=== PATIENT | female | born 1940 | race Caucasian/White ===

== ENCOUNTER 2016-09-18 09:15 | Outpatient (CLI) | payer MEDICARE | END 2016-09-18 09:16 | disposition home or self-care (01) | DX: Z53.9 Procedure and treatment not carried out, unspecified reason (principal) ==

== ENCOUNTER 2017-04-07 14:36 | Outpatient (CLI) | payer MEDICARE ==
[2017-04-07 18:56] LABS: BASOPHILS # (AUTO) 0.1 10^3/uL (0.0-0.1); BASOPHILS % (AUTO) 0.8 %; EOSINOPHILS # (AUTO) 0.1 10^3/uL (0.0-0.7); EOSINOPHILS % (AUTO) 1.6 %; HCT - HEMATOCRIT 40.3 % (37.0-47.0); HGB - HEMOGLOBIN 13.1 g/dL (12.0-16.0); LYMPHOCYTES # (AUTO) 2.3 10^3/uL (1.5-3.5); LYMPHOCYTES % (AUTO) 27.8 %; MEAN CORPUSCULAR HEMOGLOBIN 28.4 pg (27.0-31.0); MEAN CORPUSCULAR HGB CONC 32.5 g/dL (32.0-36.0); MEAN CORPUSCULAR VOLUME 87.2 fL (81.0-99.0); MEAN PLATELET VOLUME 9.5 fL (7.9-10.8); MONOCYTES # (AUTO) 0.7 10^3/uL (0.0-1.0); MONOCYTES % (AUTO) 8.6 %; NEUTROPHILS # (AUTO) 5.1 10^3/uL (1.5-6.6); NEUTROPHILS % (AUTO) 61.2 %; NUCLEATED RED BLOOD CELLS AUTO 0.1 /100WBC; RED BLOOD COUNT 4.62 10^6/uL (4.20-5.40); RED CELL DISTRIBUTION WIDTH 14.3 % (12.0-15.0); UNCORRECTED WHITE BLOOD COUNT 8.3 x10^3/uL; WHITE BLOOD COUNT 8.3 x10^3/uL (4.8-10.8)
[2017-04-07 19:13] LABS: ALBUMIN/GLOBULIN RATIO 1.2 (1.0-2.2); BILIRUBIN,TOTAL 0.7 mg/dL (0.2-1.0); BUN - BLOOD UREA NITROGEN 20 mg/dL (6-20); CALCIUM 9.6 mg/dL (8.5-10.3); CARBON DIOXIDE - CO2 30 mmol/L (21-32); CHLORIDE 98 mmol/L (101-111); CHOL/HDL RATIO 5.2 (<4.4); CHOLESTEROL 243 mg/dL; GFR - MDRD 54 (>89); GLUCOSE 105 mg/dL (70-100); HDL CHOLESTEROL 47 mg/dL; LDL/HDL RATIO 3.3 (<4.4); SODIUM 137 mmol/L (135-145); TOTAL PROTEIN 7.8 g/dL (6.7-8.2); TRIGLYCERIDES 211 mg/dL; VLDL CHOLESTEROL 42 mg/dL
== END 2017-04-07 14:37 | disposition home or self-care (01) ==
LOC: LAB.WCP 14:36
PROVIDERS: ATTEND Family Medicine
DX: I10 Essential (primary) hypertension (principal); E78.1 Pure hyperglyceridemia
CPT/HCPCS: 36415; 80053; 80061; 85025

== ENCOUNTER 2018-01-18 11:01 | Outpatient (CLI) | payer MEDICARE ==
--- NOTE | 2018-01-18 14:33 | XRAY Report ---
Procedure Date: 01/18/2018 Accession Number: [id number] / [id number] Procedure: XR - AC Joints CPT Code: FULL RESULT: EXAM: Shoulder 2 View RT, AC Joints DATE: 01/18/2018 11:28 AM CLINICAL HISTORY: SHOULDER PAIN RIGHT COMPARISON: None. TECHNIQUE: 3 views of the shoulder and weightbearing and nonweightbearing views of the AC joints. FINDINGS: Anterior inferior glenohumeral dislocation. Humeral head deformity, suspect Hill-Sachs lesion. Degenerative changes seen about the acromioclavicular joints. No fracture is identified. Views of the AC joints with and without weight demonstrate preservation of the bilateral acromioclavicular distances as well as the coracoclavicular intervals bilaterally. IMPRESSION: Anterior inferior dislocation of the right shoulder. RADIA
--- NOTE | 2018-01-18 14:34 | XRAY Report ---
Procedure Date: 01/18/2018 Accession Number: [id number] / [id number] Procedure: XR - Shoulder 2 View RT CPT Code: FULL RESULT: EXAM: Shoulder 2 View RT, AC Joints DATE: 01/18/2018 11:28 AM CLINICAL HISTORY: SHOULDER PAIN RIGHT COMPARISON: None. TECHNIQUE: 3 views of the shoulder and weightbearing and nonweightbearing views of the AC joints. FINDINGS: Anterior inferior glenohumeral dislocation. Humeral head deformity, suspect Hill-Sachs lesion. Degenerative changes seen about the acromioclavicular joints. No fracture is identified. Views of the AC joints with and without weight demonstrate preservation of the bilateral acromioclavicular distances as well as the coracoclavicular intervals bilaterally. IMPRESSION: Anterior inferior dislocation of the right shoulder. RADIA
== END 2018-01-18 11:02 | disposition home or self-care (01) ==
LOC: DI 11:01
PROVIDERS: ATTEND Physician Assistant Medical
DX: S43.014A Anterior dislocation of right humerus, initial encounter (principal)
CPT/HCPCS: 73050

== ENCOUNTER 2019-05-17 12:24 | Outpatient (CLI) | payer MEDICARE ==
--- NOTE | 2019-05-17 15:11 | Ultrasound Report ---
Reason: LT BREAST LUMP Procedure Date: 05/17/2019 Accession Number: [id number] / [id number] Procedure: US - Breast Unilateral Limited CPT Code: Final Report FULL RESULT: EXAM: Diagnostic Srinivasa Alamo, Breast Unilateral Limited DATE: 05/17/2019 1:29 PM CLINICAL HISTORY: The patient is a 78-year-old female presenting with a palpable lump (dermal origin) in the left breast. No personal nor family history of breast cancer. BILATERAL MAMMOGRAM TECHNIQUE: (B) - Bilateral CC, exaggerated CC and MLO views were obtained. Diagnostic left breast views obtained. COMPARISON: 09/03/2014, 11/09/2012 and 09/03/2010 PARENCHYMAL PATTERN: (A) - The breasts demonstrate scattered fibroglandular densities bilaterally. FINDINGS: RIGHT BREAST: There are no suspicious masses, calcifications, or areas of distortion. LEFT BREAST: There is a circumscribed interdermal lesion (ultrasound proven sebaceous cyst) in the 4-5 o'clock middle position at the site of palpable concern. The remainder of the parenchyma is stable. There are no masses, calcifications or areas of distortion. No mammographically suspicious findings. LEFT ULTRASOUND: TECHNIQUE: High-frequency transducer was utilized to evaluate the site of palpable concern described on the patient. Doppler performed. Technology Officer static images obtained. FINDINGS: There is an intradermal avascular cyst measuring 11 mm in maximal dimension. This is consistent with a benign inspissated sebaceous/inclusion cyst and corresponds to the palpable and mammographic findings. No solid mass, hyperemia or distortion. No sonographically suspicious findings. IMPRESSION: Benign findings. BI-RADS category 2. RECOMMENDATION: Clinical follow-up is recommended. Benign imaging should not dissuade further evaluation of any suspicious changes. Annual screening mammography is recommended. BI-RADS CATEGORY: STANDARD QUALIFYING STATEMENTS: 1. This examination was not reviewed with the aid of Computer-Aided Detection (CAD). 2. A negative or benign imaging report should not preclude biopsy if clinically suspicious findings are present. 3. Dense breasts may obscure an underlying neoplasm.
== END 2019-05-17 12:25 | disposition home or self-care (01) ==
LOC: DI 12:24
PROVIDERS: ATTEND Family Medicine
DX: N60.02 Solitary cyst of left breast (principal)
CPT/HCPCS: 76642; 77066

== ENCOUNTER 2020-12-09 08:00 | Outpatient (CLI) | payer MEDICARE ==
[2020-12-09 13:23] LABS: BASOPHILS # (AUTO) 0.1 10^3/uL (0.0-0.1); BASOPHILS % (AUTO) 1.1 %; EOSINOPHILS # (AUTO) 0.1 10^3/uL (0.0-0.7); HCT - HEMATOCRIT 41.7 % (37.0-47.0); HGB - HEMOGLOBIN 12.8 g/dL (12.0-16.0); LYMPHOCYTES # (AUTO) 1.6 10^3/uL (1.5-3.5); LYMPHOCYTES % (AUTO) 23.2 %; MEAN CORPUSCULAR HEMOGLOBIN 27.4 pg (27.0-31.0); MEAN CORPUSCULAR HGB CONC 30.7 g/dL (32.0-36.0); MEAN CORPUSCULAR VOLUME 89.3 fL (81.0-99.0); MEAN PLATELET VOLUME 11.1 fL (7.9-10.8); MONOCYTES # (AUTO) 0.6 10^3/uL (0.0-1.0); MONOCYTES % (AUTO) 8.6 %; NEUTROPHILS # (AUTO) 4.5 10^3/uL (1.5-6.6); NEUTROPHILS % (AUTO) 64.7 %; PLT - PLATELET COUNT 264 10^3/uL (130-450); RED BLOOD COUNT 4.67 10^6/uL (4.20-5.40); RED CELL DISTRIBUTION WIDTH 14.1 % (12.0-15.0)
[2020-12-09 13:50] LABS: ALBUMIN 4.5 g/dL (3.2-5.5); ALBUMIN/GLOBULIN RATIO 1.2 (1.0-2.2); ALKALINE PHOSPHATASE 44 IU/L (42-121); ALT ALANINE AMINOTRANSFERASE 18 IU/L (10-60); AST ASPARTATE AMINOTRANSFERASE 16 IU/L (10-42); BILIRUBIN,TOTAL 0.6 mg/dL (0.2-1.0); BUN - BLOOD UREA NITROGEN 18 mg/dL (6-20); CALCIUM 9.4 mg/dL (8.5-10.3); CARBON DIOXIDE - CO2 30 mmol/L (21-32); CHLORIDE 94 mmol/L (101-111); CHOL/HDL RATIO 4.2 (<4.4); CHOLESTEROL 225 mg/dL; CREATININE 0.7 mg/dL (0.4-1.0); GFR - MDRD 81 (>89); GLUCOSE 121 mg/dL (70-100); HDL CHOLESTEROL 54 mg/dL; LDL CHOLESTEROL,CALCULATED 140 mg/dL; LDL/HDL RATIO 2.6 (<4.4); POTASSIUM 4.4 mmol/L (3.5-5.0); SODIUM 136 mmol/L (135-145); TOTAL PROTEIN 8.3 g/dL (6.7-8.2); TRIGLYCERIDES 157 mg/dL; VLDL CHOLESTEROL 31 mg/dL
[2020-12-09 13:58] LABS: ESTIMATED AVERAGE GLUCOSE 120 mg/dL (70-100); HEMOGLOBIN A1c% 5.8 % (4.27-6.07)
== END 2020-12-09 23:59 | disposition home or self-care (01) ==
LOC: LAB.WCP 08:00
PROVIDERS: ATTEND Family Medicine
DX: R73.01 Impaired fasting glucose (principal); E78.1 Pure hyperglyceridemia; I10 Essential (primary) hypertension
CPT/HCPCS: 36415; 80053; 80061; 83036; 83721; 85025

== ENCOUNTER 2021-08-14 10:25 | Outpatient (CLI) | payer MEDICARE ==
--- NOTE | 2021-08-14 15:53 | XRAY Report ---
PROCEDURE: Knee 4 View LT INDICATIONS: KNEE PAIN, LEFT TECHNIQUE: 4 views of the left knee(s) were acquired. COMPARISON: None. FINDINGS: Bones: No fractures or dislocations. No suspicious bony lesions. Tricompartmental degenerative candy nges with tricompartmental osteophytes and severe medial joint space narrowing. Soft tissues: No joint effusion. No suspicious soft tissue calcifications. IMPRESSION: Osteoarthritis of the left knee. Reviewed by: Jason Vee on 08/14/2021 3:52 PM PST Approved by: Jason Vee on 08/14/2021 3:52 PM [facility] Station ID: [id number]
== END 2021-08-14 10:26 | disposition home or self-care (01) ==
LOC: DI.N 10:25
PROVIDERS: ATTEND Family Medicine
DX: M17.12 Unilateral primary osteoarthritis, left knee (principal)

== ENCOUNTER 2022-05-21 08:10 | Outpatient (CLI) | payer MEDICARE ==
[2022-05-21 12:29] LABS: BASOPHILS # (AUTO) 0.1 10^3/uL (0.0-0.1); BASOPHILS % (AUTO) 0.9 %; EOSINOPHILS # (AUTO) 0.1 10^3/uL (0.0-0.7); EOSINOPHILS % (AUTO) 1.9 %; HCT - HEMATOCRIT 40.5 % (37.0-47.0); HGB - HEMOGLOBIN 12.8 g/dL (12.0-16.0); LYMPHOCYTES # (AUTO) 1.7 10^3/uL (1.5-3.5); LYMPHOCYTES % (AUTO) 25.8 %; MEAN CORPUSCULAR HEMOGLOBIN 27.8 pg (27.0-31.0); MEAN CORPUSCULAR HGB CONC 31.6 g/dL (32.0-36.0); MEAN CORPUSCULAR VOLUME 87.9 fL (81.0-99.0); MEAN PLATELET VOLUME 11.4 fL (7.9-10.8); MONOCYTES # (AUTO) 0.6 10^3/uL (0.0-1.0); MONOCYTES % (AUTO) 8.9 %; NEUTROPHILS % (AUTO) 62.2 %; PLT - PLATELET COUNT 259 10^3/uL (130-450); RED BLOOD COUNT 4.61 10^6/uL (4.20-5.40); RED CELL DISTRIBUTION WIDTH 14.1 % (12.0-15.0); WHITE BLOOD COUNT 6.4 x10^3/uL (4.8-10.8)
[2022-05-21 12:46] LABS: ALBUMIN/GLOBULIN RATIO 1.1 (1.0-2.2); ALKALINE PHOSPHATASE 41 IU/L (42-121); ALT ALANINE AMINOTRANSFERASE 16 IU/L (10-60); AST ASPARTATE AMINOTRANSFERASE 16 IU/L (10-42); BILIRUBIN,TOTAL 0.8 mg/dL (0.2-1.0); BUN - BLOOD UREA NITROGEN 19 mg/dL (6-20); CALCIUM 9.3 mg/dL (8.5-10.3); CARBON DIOXIDE - CO2 32 mmol/L (21-32); CHLORIDE 97 mmol/L (101-111); CHOL/HDL RATIO 4.5 (<4.4); CHOLESTEROL 206 mg/dL; CREATININE 0.8 mg/dL (0.4-1.0); GFR - MDRD 69 (>89); GLUCOSE 119 mg/dL (70-100); HDL CHOLESTEROL 46 mg/dL; LDL CHOLESTEROL,CALCULATED 133 mg/dL; LDL/HDL RATIO 2.9 (<4.4); POTASSIUM 3.9 mmol/L (3.5-5.0); SODIUM 137 mmol/L (135-145); TOTAL PROTEIN 7.5 g/dL (6.7-8.2); TRIGLYCERIDES 137 mg/dL; VLDL CHOLESTEROL 27 mg/dL
[2022-05-21 12:50] LABS: THYROID STIMULATING HORMONE 1.27 uIU/mL (0.34-5.60)
[2022-05-21 12:56] LABS: ESTIMATED AVERAGE GLUCOSE 117 mg/dL (70-100); HEMOGLOBIN A1c% 5.7 % (4.27-6.07)
== END 2022-05-21 08:11 | disposition home or self-care (01) ==
LOC: LAB.N 08:10
PROVIDERS: ATTEND Nurse Practitioner
DX: I10 Essential (primary) hypertension (principal); E78.1 Pure hyperglyceridemia; R73.01 Impaired fasting glucose; R53.83 Other fatigue
CPT/HCPCS: 36415; 80053; 80061; 83036; 83721; 84443; 85025

== ENCOUNTER 2023-10-12 09:08 | Outpatient (CLI) | payer MEDICARE ==
[2023-10-12 12:14] LABS: BASOPHILS # (AUTO) 0.1 10^3/uL (0.0-0.1); EOSINOPHILS # (AUTO) 0.1 10^3/uL (0.0-0.7); HGB - HEMOGLOBIN 12.5 g/dL (12.0-16.0); LYMPHOCYTES # (AUTO) 1.6 10^3/uL (1.5-3.5); LYMPHOCYTES % (AUTO) 23.1 %; MEAN CORPUSCULAR HEMOGLOBIN 28.2 pg (27.0-31.0); MEAN CORPUSCULAR HGB CONC 32.1 g/dL (32.0-36.0); MEAN PLATELET VOLUME 10.6 fL (7.9-10.8); MONOCYTES # (AUTO) 0.6 10^3/uL (0.0-1.0); MONOCYTES % (AUTO) 9.2 %; NEUTROPHILS # (AUTO) 4.4 10^3/uL (1.5-6.6); NEUTROPHILS % (AUTO) 64.6 %; PLT - PLATELET COUNT 261 10^3/uL (130-450); RED BLOOD COUNT 4.43 10^6/uL (4.20-5.40); RED CELL DISTRIBUTION WIDTH 13.9 % (12.0-15.0); WHITE BLOOD COUNT 6.8 x10^3/uL (4.8-10.8)
[2023-10-12 12:27] LABS: ALBUMIN 4.4 g/dL (3.2-5.5); ALBUMIN/GLOBULIN RATIO 1.3 (1.0-2.2); ALKALINE PHOSPHATASE 54 IU/L (42-121); ALT ALANINE AMINOTRANSFERASE 10 IU/L (10-60); AST ASPARTATE AMINOTRANSFERASE 11 IU/L (10-42); BILIRUBIN,TOTAL 0.6 mg/dL (0.2-1.0); BUN - BLOOD UREA NITROGEN 18 mg/dL (6-20); CARBON DIOXIDE - CO2 32 mmol/L (21-32); CHLORIDE 99 mmol/L (101-111); CHOL/HDL RATIO 4.1 (<4.4); CHOLESTEROL 216 mg/dL; CREATININE 0.9 mg/dL (0.6-1.3); GFR - MDRD 60 (>89); GLUCOSE 123 mg/dL (74-104); HDL CHOLESTEROL 53 mg/dL; LDL CHOLESTEROL,CALCULATED 129 mg/dL; LDL/HDL RATIO 2.4 (<4.4); POTASSIUM 4.2 mmol/L (3.5-4.5); SODIUM 137 mmol/L (135-145); TOTAL PROTEIN 7.9 g/dL (6.4-8.9); TRIGLYCERIDES 168 mg/dL (48-352); VLDL CHOLESTEROL 34 mg/dL
[2023-10-12 12:33] LABS: ESTIMATED AVERAGE GLUCOSE 117 mg/dL (70-100); HEMOGLOBIN A1c% 5.7 % (4.27-6.07)
[2023-10-12 12:42] LABS: THYROID STIMULATING HORMONE 1.54 uIU/mL (0.34-5.60)
== END 2023-10-12 09:09 | disposition home or self-care (01) ==
LOC: LAB.N 09:08
PROVIDERS: ATTEND Nurse Practitioner Family
DX: I10 Essential (primary) hypertension (principal); R73.01 Impaired fasting glucose
CPT/HCPCS: 36415; 80053; 80061; 83036; 83721; 84443; 85025